=== PATIENT | male | born 1940 | race Caucasian/White ===

== ENCOUNTER 2021-06-29 09:47 | Emergency (ER) | payer MEDICARE, OTHER ==
[~2021-06-29] VITALS: Ht 170.2 cm; Wt 83.9 kg
[~2021-06-29 09:47] MED LIST: AMLODIPINE BESYL5 MG PO; ASPIRIN EC325 MG PO; ATENOLOL50 MG PO; CARBIDOPA-LEVO1 EAC1 PO; FINASTERIDE1 MG PO; FINASTERIDE5 MG PO; GEMFIBROZIL600 MG PO; GLIPIZIDE XL5 MG PO; LIPITOR20 MG PO; LOSARTAN-HCTZ1 EAC1 PO; METFORMIN HCL500 MG PO; OMEPRAZOLE20 MG PO; VITAMIN D31000 UNI1 PO
--- OUTSIDE RECORDS SUMMARY | 2021-06-29 09:50 | XMS ---
PreManage Notification: ELMA CHARLES Security Manager Assurance Events No recent Security Events currently on file CRITERIA MET - [facility] CARE PROVIDERS There are no care providers on record at this time. Helen has no Care Guidelines for this patient. [place] VISIT COUNT (12 MO.) 1 G[facility] [place] TOTAL 1 NOTE: Visits indicate total known visits. ED/C VISIT TRACKING (12 MO.) 06/29/2021 09:49 GIANFRANCO [facility] OR TYPE: Emergency COMPLAINT: - LEFT EYE PAIN, POST EYE SURGERY INPATIENT VISIT TRACKING (12 MO.) No inpatient visits to display in this time frame [email or web address]
[2021-06-29] MEDS ORDERED: KETOROLAC TROMET5 M1 OPTH (10:48)
[2021-06-29] MEDS ORDERED: OFLOXACIN5 M1 OP (10:48)
[2021-06-29] MEDS ORDERED: ALLOPURINOL100 MG PO (10:49)
== END 2021-06-29 11:55 | disposition home or self-care (01) ==
LOC: ED 09:47
DX: H57.12 Ocular pain, left eye (principal); E11.22 Type 2 diabetes mellitus with diabetic chronic kidney disease; N18.4 Chronic kidney disease, stage 4 (severe); G20 Parkinson's disease; I25.10 Atherosclerotic heart disease of native coronary artery without angina pectoris; Z88.8 Allergy status to other drugs, medicaments and biological substances; Z79.899 Other long term (current) drug therapy; Z79.82 Long term (current) use of aspirin; Z79.84 Long term (current) use of oral hypoglycemic drugs
CPT/HCPCS: 99283

== ENCOUNTER 2024-04-14 15:07 | Emergency (ER) | payer MEDICARE, OTHER ==
[~2024-04-14] VITALS: Ht 170.2 cm; Wt 76.0 kg
[~2024-04-14 15:07] MED LIST changes: +ALLOPURINOL100 MG PO; +KETOROLAC TROMET5 M1 OPTH; +OFLOXACIN5 M1 OP
[2024-04-14] MEDS ORDERED: TRIMETHOPRIM/SULFAMETHOXAZOLE 1 EA TAB PO ONE (16:15)
[2024-04-14] MEDS ORDERED: BACTRIM DS TAB1 EACH PO (17:09)
[2024-04-14 17:15] VITALS: BP 162/76
== END 2024-04-14 17:17 | disposition home or self-care (01) ==
LOC: ED 15:07
DX: S92.424A Nondisplaced fracture of distal phalanx of right great toe, initial encounter for closed fracture (principal); E11.9 Type 2 diabetes mellitus without complications; W05.0XXA Fall from non-moving wheelchair, initial encounter; Z79.82 Long term (current) use of aspirin; Z79.84 Long term (current) use of oral hypoglycemic drugs; Z79.899 Other long term (current) drug therapy; Z88.8 Allergy status to other drugs, medicaments and biological substances
CPT/HCPCS: 73630; 99283; A9270

== ENCOUNTER 2024-04-20 08:18 | Inpatient (IN) | payer MEDICARE, OTHER ==
--- NOTE | 2024-04-19 19:30 | NUR ---
REPORT RECEIVED FROM ANA CALHOUN. PT IS RESTING IN BED WITH EYES CLOSED, ON CONT CARDIAC MONITORING,VSS.
[~2024-04-20] VITALS: Ht 170.2 cm; Wt 78.5 kg
[2024-04-20] VITALS (11 sets, daily range): BP systolic 141–178; BP diastolic 61–104
[~2024-04-20 08:18] MED LIST changes: +BACTRIM DS TAB1 EACH PO
[2024-04-20] MEDS ORDERED: DEXTROSE 5% - NACL 0.9% 1,000 ML IV SCH (08:30)
[2024-04-20] MEDS ORDERED: DEXTROSE 50% 50 ML SYR IV ONE ×3 (08:30→10:45)
[2024-04-20] MEDS ORDERED: ondansetron HCL 4 MG/2 ML VIAL IV ONE (08:30)
[2024-04-20 08:52] LABS: BASOPHILS 0.2 % (0-2); HEMATOCRIT 29.6 % (35.0-50.0); HEMOGLOBIN 10.1 g/dL (12.0-18.0); LYMPHOCYTES 1.3 % (24-44); MCH 32.4 (27-36); MCHC 34.1 g/dl (30-36); MONOCYTES 5.8 % (0-12); NEUTROPHILS 92.7 % (39-80); PLATELET COUNT 165 K/uL (140-440); RBC 3.11 M/ul (4.3-5.7); RDW 13.6 (10.5-15.0)
[2024-04-20] MEDS ORDERED: SULFAMETHOXAZO1 EAC1 PO (08:53)
[2024-04-20] MEDS ORDERED: LEVODOPA/CARBIDOPA 25/100 1 EA TAB PO SCH ×2 (09:00→21:00)
[2024-04-20 09:17] LABS: ALBUMIN 3.4 g/dL (3.4-5.0); ALBUMIN/GLOBULIN RATIO 1.17 (1.1-2.4); ANION GAP 15.2 (7-21); BILIRUBIN, TOTAL 0.3 ng/dL (0.2-1.0); BUN/CREATININE RATIO 14.89 (6.0-28.6); CALCIUM 9.2 mg/dL (8.5-10.1); CREATININE, SERUM 4.43 mg/dL (0.70-1.30); POTASSIUM 4.2 mmol/L (3.5-5.1); PROTEIN, TOTAL 6.3 g/dL (6.4-8.2)
[2024-04-20 09:56] LABS: ABO O; ANTIBODY SCREEN NEGATIVE; RH NEGATIVE
[2024-04-20] MEDS ORDERED: LIDOCAINE 2% VISCOUS 6 ML SYR TOP ONE ×2 (10:45→16:15)
[2024-04-20 11:05] LABS: BILIRUBIN, URINE NEGATIVE (negative); BLOOD/HGB, URINE MODERATE (Negative); KETONE, URINE NEGATIVE (Negative); LEUK ESTERASE, URINE NEGATIVE (negative); NITRITE, URINE NEGATIVE (negative); PH, URINE 6.5 (5-7)
[2024-04-20] MEDS ORDERED: DEXTROSE 10% 1,000 ML IV SCH (11:15)
[2024-04-20 11:18] LABS: BACTERIA, URINE NONE SEEN /hpf (negative); CRYSTALS, URINE NONE SEEN (0-1+); EPITHELIAL CELLS, URINE 0 /lpf (0-1+)
[2024-04-20 11:19] LABS: CASTS, URINE NONE SEEN \\lpf; COLLECTION TYPE, URINE CATH; REFLEX CULTURE, URINE No (No)
[2024-04-20] MEDS ORDERED: GLUCAGON,HUMAN RECOMBINANT 1 MG/ML VIAL SUB-Q PRN (13:30)
[2024-04-20] MEDS ORDERED: ondansetron HCL 4 MG/2 ML VIAL IV PRN (13:30)
[2024-04-20] MEDS ORDERED: IBLOOD GLUCOSE TEST STRIP 1 EA TEST XX PRN (13:30)
[2024-04-20] MEDS ORDERED: ACETAMINOPHEN 325 MG TAB PO PRN (13:30)
[2024-04-20] MEDS ORDERED: DEXTROSE 5% 1,000 ML IV PRN (13:30)
[2024-04-20] MEDS ORDERED: DEXTROSE 50% 50 ML SYR IV PRN ×2 (13:30)
[2024-04-20] MEDS ORDERED: INDAPAMIDE1.25 MG PO (14:33)
[2024-04-20] MEDS ORDERED: TAMSULOSIN HCL0.4 MG PO (14:34)
[2024-04-20] MEDS ORDERED: IRBESARTAN150 MG PO (14:34)
[2024-04-20] MEDS ORDERED: METOPROLOL SUC100 MG PO (14:34)
[2024-04-20] MEDS ORDERED: ATORVASTATIN CA20 MG PO (14:35)
--- NOTE | 2024-04-20 15:30 | NUR ---
This RN brings patient to CCU from ER. Patient A+O, accompanied by Viviane. On 3L NC O2 at this time. HRR, no chest pain reported. Lung sounds clear. Bowel tones active. Noted scattered bruising and scratches from recent falls, R great toenail appears injured/bruised from recent fall that brought patient to the ER 6 days ago. Pt reports parkinsonian tremors baseline. Intake forms in process.
--- NOTE | 2024-04-20 15:36 | NUR ---
medications reconciled
[2024-04-20] MEDS ORDERED: LACTATED RINGER'S 1,000 ML IV ONE (16:15)
[2024-04-20] MEDS ORDERED: LACTATED RINGER'S 1,000 ML IV SCH ×3 (16:15→23:45)
[2024-04-20] MEDS ORDERED: OCTREOTIDE ACETATE 100 MCG/ML VIAL IV ONE (16:15)
[2024-04-20] MEDS ORDERED: HEPARIN SOD,PORK IN 0.45% NACL 500 ML IV SCH (16:30)
[2024-04-20 16:33] LABS: PARTIAL THROMBOPLASTIN TIME 26.9 Sec (22.9-41.3)
[2024-04-20 16:34] LABS: INR 1.04 (0.80-1.30); PROTIME 12.9 Sec (11.2-14.2)
[2024-04-20] MEDS ORDERED: INSULIN LISPRO 100 UNIT/ML ML SUB-Q SCH (17:00)
[2024-04-20] MEDS ORDERED: IBLOOD GLUCOSE TEST STRIP 1 EA TEST VI SCH (17:00)
[2024-04-20] MEDS ORDERED: LORazepam 0.5 MG TAB PO ONE (17:30)
[2024-04-20] MEDS ORDERED: DEXTROSE 5% - LACTATED RINGERS 1,000 ML IV SCH (17:30)
[2024-04-20] MEDS ORDERED: NITROGLYCERIN 0.4 MG SUBL SL PRN (18:15)
[2024-04-20] MEDS ORDERED: CYCLOBENZAPRINE HCL 10 MG TAB PO PRN (18:15)
[2024-04-20] MEDS ORDERED: MORPHINE SULFATE 4 MG/ML VIAL IV PRN (18:15)
--- NOTE | 2024-04-20 18:42 | NUR ---
Block charting for hours 7148-1025 as follows: Patient requires multiple dosages of D50% for low blood sugars, checked hourly and treated per orders. Fluid order changes including LR bolus, D10% and D5LR%, see EMAR. IV octreotide administered per order. Patient tolerating PO, takes orange juice and ensure as tolerated. Patient becoming increasingly anxious. Attempted frequent repositioning, Q5-10 minutes. Over this time period, PO tylenol, PO ativan, flexeril, morphine administered, see EMAR. SL nitroglycerin administered after patient complains of worsening chest tightness. Patient receiving heparin gtt. Terrazas catheter draining clear yellow urine. Patient family at bedside and attentive to patient, engaged in care. Dr Russell at bedside to assess patient. Repeat EKG complete by RT, no acute chagnes noted.
[2024-04-20] MEDS ORDERED: MAGNESIUM CHLORIDE 64 MG TABCR PO ONE (19:00)
[2024-04-20] MEDS ORDERED: Calcium Gluconate in NS 1,000 MG/50 ML BAG IV ONE (19:00)
--- NOTE | 2024-04-20 19:30 | NUR ---
REPORT RECEIVED FROM ALFIE CALHOUN. PT RESTING IN BED WITH EYES CLOSED.
[2024-04-20 20:08] LABS: HEMOGLOBIN 9.1 g/dL (12.0-18.0); PLATELET COUNT 147 K/uL (140-440)
[2024-04-20 20:12] LABS: BASOPHILS 0.4 % (0-2); EOSINOPHILS 0.3 % (0-6); HEMATOCRIT 26.3 % (35.0-50.0); LYMPHOCYTES 3.9 % (24-44); MCH 32.7 (27-36); MCHC 34.8 g/dl (30-36); MCV 94.1 fl (81-99); MONOCYTES 10.7 % (0-12); NEUTROPHILS 84.7 % (39-80); RBC 2.79 M/ul (4.3-5.7); RDW 13.5 (10.5-15.0)
[2024-04-20] MEDS ORDERED: METOPROLOL SUCCINATE 50 MG TABCR PO SCH (21:00)
--- NOTE | 2024-04-20 21:45 | NUR ---
SPENT 30 MINUTES TRYING TO REPOSITION PT FOR COMFORT, PT CONT TO C/O HIP PAIN AND CRAMPING. 2 MG IV MORPHINE GIVEN FOR PAIN.
--- NOTE | 2024-04-20 22:45 | EKG ---
[facility] [address] [place] [address] Signed Poor data quality, interpretation may be adversely affected Atrial fibrillation with premature ventricular or aberrantly conducted complexes ST \T\ T wave abnormality, consider inferior ischemia Abnormal ECG No previous ECGs available Confirmed by Cuco Delgado MD () on 04/20/2024 10:45:37 PM Electronically Signed By: CUCO DELGADO MD 04/20/24 2245 PATIENT NAME: ELMA CHARLES Electrocardiogram DATE OF : 42 PHYSICIAN: CUCO DELGADO MD REPORT #: [id number] REPORT IS CONFIDENTIAL AND NOT TO BE RELEASED WITHOUT AUTHORIZATION
--- NOTE | 2024-04-20 22:47 | EKG ---
[facility] [address] [place] [address] Signed Accelerated Junctional rhythm Minimal voltage criteria for LVH, may be normal variant ( R in aVL ) Abnormal ECG When compared with ECG of 20-APR-2024 09:36, No significant change was found Confirmed by Cuco Delgado MD () on 04/20/2024 10:46:53 PM Electronically Signed By: CUCO DELGADO MD 04/20/24 2247 PATIENT NAME: ELMA CHARLES Electrocardiogram DATE OF : 42 PHYSICIAN: CUCO DELGADO MD REPORT #: [id number] REPORT IS CONFIDENTIAL AND NOT TO BE RELEASED WITHOUT AUTHORIZATION
--- NOTE | 2024-04-20 22:54 | EKG ---
[facility] [address] [facility] [place] [address] Signed Normal sinus rhythm with 1st degree AV block Nonspecific ST abnormality Abnormal ECG When compared with ECG of 20-APR-2024 09:37, No significant change was found Confirmed by Cuco Delgado MD () on 04/20/2024 10:54:12 PM Electronically Signed By: CUCO DELGADO MD 04/20/24 225 PATIENT NAME: ELMA CHARLES KAREN Electrocardiogram DATE OF : 42 PHYSICIAN: CUCO DELGADO MD REPORT #: [id number] REPORT IS CONFIDENTIAL AND NOT TO BE RELEASED WITHOUT AUTHORIZATION
--- NOTE | 2024-04-20 23:00 | EKG ---
[facility] [address] [facility] [place] [address] Signed Sinus rhythm with 1st degree AV block Left ventricular hypertrophy with repolarization abnormality Abnormal ECG When compared with ECG of 20-APR-2024 11:13, No significant change was found Confirmed by Cuco Delgado MD () on 04/20/2024 11:00:24 PM Electronically Signed By: CUCO DELGADO MD 04/20/242299 PATIENT NAME: ELMA CHARLES KAREN Electrocardiogram DATE OF : 42 PHYSICIAN: CUCO DELGADO MD REPORT #: [id number] REPORT IS CONFIDENTIAL AND NOT TO BE RELEASED WITHOUT AUTHORIZATION
--- NOTE | 2024-04-20 23:19 | NUR ---
PT HAS BEEN RESTFUL, LYING WITH EYES CLOSED, RESP EVEN AND UNLABORED, VSS SINCE MORPHINE WAS GIVEN.
--- NOTE | 2024-04-20 23:45 | NUR ---
CRITICAL LAB VALUE TROPONIN RECEIVED, CONVEYED TO DR DELGADO. ALSO NEW CK RESULT DISCUSSED, NEW ORDERS FOR 2L LR BOLUS GIVEN. BOLUS STARTED. PT REMAINS RESTFUL IN BED, DOES WAKE WITH CARE ACTIVITIES BUT GOES BACK TO SLEEP AFTERWARDS.
[2024-04-21] VITALS (17 sets, daily range): BP systolic 130–184; BP diastolic 52–86
--- NOTE | 2024-04-21 03:45 | NUR ---
PT CALLING OUT FOR NURSE, NEEDS TISSUE TO SPIT SPUTUM INTO. STATES HE HAS BEEN MORE COMFORTABLE AND HAS BEEN ABLE TO SLEEP OFF AND ON. DOES C/O NOT BEING ABLE TO DO A STRONG COUGH AND UNABLE TO COUGH UP MUCOUS. PT GIVEN CORONET. ASSESSMENT DONE, UNCHANGED FROM PREVIOUS. DENIES ANY CHEST TIGHTNESS OR PAIN AT THIS TIME. PT REMAINS ON 2L/O2 WITH SPO2 93%.
[2024-04-21 05:44] LABS: BASOPHILS 0.8 % (0-2); EOSINOPHILS 2.6 % (0-6); HEMATOCRIT 27.9 % (35.0-50.0); HEMOGLOBIN 9.6 g/dL (12.0-18.0); LYMPHOCYTES 6.9 % (24-44); MCH 32.5 (27-36); MCHC 34.5 g/dl (30-36); MCV 94.2 fl (81-99); MONOCYTES 13.1 % (0-12); NEUTROPHILS 76.6 % (39-80); PLATELET COUNT 147 K/uL (140-440); RBC 2.96 M/ul (4.3-5.7); RDW 13.2 (10.5-15.0)
--- NOTE | 2024-04-21 06:00 | NUR ---
IN FOR IV PUMP, PT REPOSITIONED FOR COMFORT.
[2024-04-21 06:09] LABS: ALBUMIN 2.6 g/dL (3.4-5.0); ALBUMIN/GLOBULIN RATIO 0.96 (1.1-2.4); ANION GAP 12.6 (7-21); BILIRUBIN, TOTAL 0.3 ng/dL (0.2-1.0); BUN/CREATININE RATIO 13.23 (6.0-28.6); CALCIUM 8.8 mg/dL (8.5-10.1); CREATININE, SERUM 3.55 mg/dL (0.70-1.30); MAGNESIUM 1.5 mg/dL (1.8-2.4); PHOSPHORUS, INORGANIC 2.7 mg/dL (2.5-4.9); POTASSIUM 4.6 mmol/L (3.5-5.1); PROTEIN, TOTAL 5.3 g/dL (6.4-8.2)
--- NOTE | 2024-04-21 07:21 | NUR ---
UR CLINICAL REVIEW: 2 MN SUZIE, MEETS INPT FOR HYPOGLYCEMIA, NSTEMI MEDICARE INPT 04/20/2024 @ 1326 ORDER MATCHES REG NO AUTH REQUIRED PER MEDICARE RULES. DC PLAN PENDING FURTHER ASSESSMENT.
--- NOTE | 2024-04-21 07:30 | NUR ---
REPORT RECIEVED FROM INSURANCE ATTORNEY RN. PATIENT RESTING IN BED ON HEPARIN GTT AT THIS TIME. PATIENT RECIEVING D10 AT 100MLS/HR AND LR AT 200MLS/HR. PATIENT ON 2L NC AND IS NOT USUALLY ON OXYGEN.
[2024-04-21] MEDS ORDERED: MAGNESIUM SULFATE 2 GM/50 ML BAG IV SCH (08:15)
[2024-04-21] MEDS ORDERED: LACTATED RINGER'S 1,000 ML IV ONE ×3 (08:15→20:00)
[2024-04-21] MEDS ORDERED: METOPROLOL SUCCINATE 100 MG TABCR PO SCH (09:00)
--- NOTE | 2024-04-21 09:17 | NUR ---
PATIENT IN BED AT THIS TIME. MEDICAL TECHNICIAN ASSISTED IN FEEDINGS PATIENT. CALL LIGHT WITHIN REACH, NO FURTHER NEEDS AT THIS TIME.
--- NOTE | 2024-04-21 09:30 | NUR ---
IN TO SEE PATIENT AND REVIEW PLAN OF CARE. REPEAT LABS AT 1230. PATIENT IS VERY SOFT SPOKEN AND DIFFICULT TO UNDERSTAND AT TIMES. PATIENT REPORTS CHRONIC PAIN. PATIENT DENIES CHEST PAIN AND SOB. PATIENT ON 2L NC. PATIENTS HAS NOT BEEN IN YET AT THIS TIME. PATIENT ATE BREAKFAST AND TOLERATED WELL. PATIENT NEEDED TO BE FED HIS FOOD WITH ASSISTANCE FROM STAFF. PATIENT TOOK HIS MEDICATIOSN ONE AT A TIME WITH JUICE. CALL LIGHT IN REACH.
--- NOTE | 2024-04-21 10:30 | NUR ---
Spoke with Adilson. He is resting in bed and states he is very tired. He lives at home with his and house as 2 steps. He denies issues getting in or out. He has Parkinsons and goes to OP therapy for 3 years. He denies wanting to transfer out for further care. He does not want CPR or a ventalator. He would like to complete a POLST. arrives at this time. She had difficulty walking from the front of the hosital to CCU. She is not steady on her feet and holds onto the wall. I let her know in future she can notify the front of house manager or CCU and someone will give her a wc ride. is in agreement with pt for DNI/DNR. POLST completed with pt and Dr. Russell notified so he can speak with pt and sign. we had a lengthy discussion about a plan for when the pt can leave the hospital. We discussed placement to an STORM, SNF, and comfort care. Per the she is not able to care for Adilson at home. He is now a 2 person assist and it has become more and more difficult for her to care for him. She denies having the funds for placement to ASSISTED, they do not want Comfort Care, he is not excited for a SNF but would agree for rehab. would like pt to go to [facility] in [facility], pt is refusing. I gave them a list of places. He would like to go to [facility]. I will [facility] the chart to [facility], [facility], and [facility] in [place], [facility] at the [facility] in [place].
--- NOTE | 2024-04-21 10:43 | NUR ---
CAN DRYER IN AT THE BEDSIDE TO PREFORM IMAGING. PATIENTS IN ROOM AND CASE MANAGENER IN DISCUSSING PLAN OF CARE.
--- NOTE | 2024-04-21 11:02 | NUR ---
PT NOT AVAIALBLE FOR VISIT. PROVIDED PRAYER.
[2024-04-21] MEDS ORDERED: PHARMACY RENAL DOSE ADJUSTMENT 1 DOSE MISC PO SCH (12:00)
--- NOTE | 2024-04-21 12:30 | NUR ---
THIS RN AT THE BEDSIDE TO ASSIT PATIENT WITH LUNCH. PATIENT IS NOT ABLE TO FEED HIMSELF. PER PATIENTS HE DOES NOT FEED HIMSELF AT HOME EITHER. PATIENT TOELRATED WELL. PATIENT AND UPDATED ON PLAN OF CARE. LABS DONE AND AWAITING RESULTS.
--- NOTE | 2024-04-21 14:00 | NUR ---
PATIENT HEPARIN GTT CHANGED PER ORDERS. PATIENTS DAUGHTER AND AT THE BEDSIDE. PATIENTS DAUGHTER UPDATED ON PLAN OF CARE. PER PATIENTS DAUGHTER THE PATIENT SAW MD HAYES LAST WEEK AND HIS GFR AT THAT TIME WAS 20 AND PER MOHANIIFTIKHAR HE WAS NOTED TO BE IN CKD STAGE 4.
--- NOTE | 2024-04-21 14:00 | NUR ---
Spoke with pts and daughter. Discussed I called [facility] and they state they have a PT Aid on staff daily during the week. He does not have backup so if he is gone, they do not have therapy that day. I also asked if pt would be able to have a private room. Fiorella stated, "this is not likely".
--- NOTE | 2024-04-21 16:33 | NUR ---
PATIENT RESITNGI N BED AT THIS TIME. PATIENT ON HEART MONITOR AND HR 50'S AT REST. PATIENT SPO2 96%. PATIENT URINE IS CLEAR YELLOW AT THIS TIME. PATIENTS DAUGHTER LEFT FOR THE NIGHT. PATIENT DENIES PAIN.
--- NOTE | 2024-04-21 18:00 | NUR ---
SINDHU SEVERINO IN TO ASSIST PATIENT WITH DINNER. PATIENT ONLY WANTED A FEW BITES. PATIENT REFUSED ENSURE AT THIS TIME. PATIENT WATCHING TV AND PROVIDED WITH APPLE JUICE. PATIENT REPORTS NO PAIN AT THIS TIME. CALL LIGHT IN REACH. PATIENT REPORTS HIS HANDS AND EYELIDS FEELING PUFFY. MD IS AWARE THAT PATIENT HAS HAD INCREASED SWELLING WITH IV FLUIDS TODAY. PATIENTS MAINTAINING SPO2 OIN 2L. PATIENTS BREATH SOUNDS REMAIN UNCHANGED. PATIENT IS ALERT AND ORIENTED.
--- NOTE | 2024-04-21 19:40 | NUR ---
Handoff report received from UNIQUE Alegre. patient laying awake in bed watching TV. no needs at this time. call light within reach.
[2024-04-21] MEDS ORDERED: SENNOSIDES/DOCUSATE 1 EA TAB PO SCH (21:00)
--- NOTE | 2024-04-21 22:20 | NUR ---
SCHEDULED MEDS PROVIDED. PT REPOSITIONED. PT STATES NO OTHER NEEDS AT THIS TIME. CALL LIGHT IN REACH.
--- NOTE | 2024-04-21 23:26 | NUR ---
PATIENT LAYING AWAKE IN BED, PROVIDED WITH BLANKET. NO FURTHER NEEDS AT THIS TIME. CALL LIGHT WITHIN REACH.
[2024-04-22] VITALS (24 sets, daily range): BP systolic 141–179; BP diastolic 38–137
--- NOTE | 2024-04-22 02:00 | NUR ---
PATIENT AWAKE IN BED, REQUEST TO TURN OFF TV. PATIENT STATES NO FURTHER NEEDS AT THIS TIME. VITAL SIGNS STABLE. CALL LIGHT WITHIN REACH.
--- NOTE | 2024-04-22 03:50 | NUR ---
patient assisted with bed miller, unable to have a BM. patient linen changed and repositioned in bed. patient TV turned on per request. call light in hand. arms elevated with pillow. patient foreskin noted to be swollen and retracted distal from glans. elevated with wash cloth. latif care provided. no further needs at this time.
--- NOTE | 2024-04-22 04:50 | NUR ---
PATIENT STATES HIS LEGS ARE CRAMPING. PATIENT REPOSITIONED BUT STATES IT DID NOT HELP. PRN FLEXERIL GIVEN PER EMAR. CALL LIGHT IN HAND. VITAL SIGNS STABLE.
[2024-04-22] MEDS ORDERED: BUDESONIDE 0.5 MG/2 ML VIAL ONE (05:00)
--- NOTE | 2024-04-22 05:05 | NUR ---
PATIENT LAYING AWAKE IN BED WATCHING TV. PATIENT REMAINS ON HEPARIN DRIP AT 10 UNITS/KG/HR. PATIENT IV SITES WNL. PATIENT NOTED TO HAVE UPPER AIRWAY WHEEZES, LUNG SOUNDS ARE CLEAR. PATIENT PROVIDED WITH WARM BLANKET. PATIENT VITAL SIGNS STABLE. CALL LIGHT IN HAND.
--- NOTE | 2024-04-22 05:09 | NUR ---
MARISELA HAS UPPER AIRWAY WHEEZING FROM SECRETIONS. HIS LUNGS SOUND CLEAR. A PULMICORT NEB WAS PROVIDED IN THE HOPES TO STREGHTEN HIS UPPER AIR MUSCLES ENOUGH TO BE ABLE COUGH UP SECRETIONS WITH AND W/O THE USE OF PULMICORT. RT OFFERRED NASO TRACHEAL SUCTION AND MARISELA REFUSED. MARISELA FELT LIKE THE PULMICORT TREATMENT DID HELP HIM
[2024-04-22] MEDS ORDERED: BUDESONIDE 0.5 MG/2 ML VIAL INH ONE (05:15)
[2024-04-22 05:39] LABS: BASOPHILS 0.7 % (0-2); EOSINOPHILS 2.6 % (0-6); HEMOGLOBIN 10.1 g/dL (12.0-18.0); LYMPHOCYTES 4.2 % (24-44); MCH 32.2 (27-36); MCHC 34.7 g/dl (30-36); MCV 92.6 fl (81-99); MONOCYTES 11.4 % (0-12); NEUTROPHILS 81.1 % (39-80); PLATELET COUNT 152 K/uL (140-440); RBC 3.13 M/ul (4.3-5.7); RDW 13.4 (10.5-15.0)
[2024-04-22 05:58] LABS: ALBUMIN 2.6 g/dL (3.4-5.0); ALBUMIN/GLOBULIN RATIO 0.93 (1.1-2.4); ANION GAP 11.4 (7-21); BILIRUBIN, TOTAL 0.3 ng/dL (0.2-1.0); BUN/CREATININE RATIO 12.58 (6.0-28.6); CALCIUM 8.9 mg/dL (8.5-10.1); CREATININE, SERUM 3.02 mg/dL (0.70-1.30); POTASSIUM 4.4 mmol/L (3.5-5.1); PROTEIN, TOTAL 5.4 g/dL (6.4-8.2)
--- NOTE | 2024-04-22 06:30 | NUR ---
DR DELGADO IN ROOM TO SEE PATIENT AND DISCUSS PLAN OF CARE
--- NOTE | 2024-04-22 07:55 | NUR ---
UPDATED PT/OT EVOLIVIA SENT TO [facility], [facility]
--- NOTE | 2024-04-22 08:43 | NUR ---
IN TO DO BLOOD SUGAR, BREAKFAST SERVED TO PT, PT SAT UP IN BED.
[2024-04-22] MEDS ORDERED: METOPROLOL SUCCINATE 100 MG TABCR PO SCH (09:00)
--- NOTE | 2024-04-22 10:46 | NUR ---
HUY FROM [facility] STATES THEY CAN ACCEPT PATIENT, BUT NOT UNTIL AT LEAST THURSDAY NEXT WEEK DUE TO BED AVAILABILITY. WILL NOTIFY PATIENT, SPOUSE, PHYSICIAN AND NURSES.
--- NOTE | 2024-04-22 11:25 | NUR ---
PT NOT AVAILABLE FOR VISIT. PROVIDED PRAYER.
--- NOTE | 2024-04-22 12:13 | NUR ---
REPORT RECEIVED FROM PHYSICAL THERAPY. PT WAS ABLE TO GET UP TO BEDSIDE AND THEN USE WALKER TO SIT ON BSC, WAS NOT ABLE TO HAVE BOWEL MOVMENT. PT THEN TO CHAIR, SITTING UP IN CHAIR WITH BED ALARM ON.
--- NOTE | 2024-04-22 13:01 | NUR ---
CALLED AND LEFT MESSAGE FOR KONRAD, , REGARDING ACCEPTANCE TO [facility] WITH PLANNED ADMISSION FOR THURSDAY NEXT WEEK AT 1PM AND PATIENT WILL NEED CLOTHING, SHOES, ETC. WHEN HE GOES. REQUEST TO DISCUSS WITH STAFF IF SHE WILL TAKE HIM OR IF A RIDE NEEDS TO BE PROVIDED.
--- NOTE | 2024-04-22 13:11 | NUR ---
IN TO VISIT, MANAGER CHEMISTRY TO COME AND TALK WITH HER ANDPT REGARDING DISCHARGE PLAN. PT REMAINS UP IN CHAIR.
--- NOTE | 2024-04-22 14:00 | NUR ---
, KONRAD, NOTIFIED OF PATIENT ACCEPTANCE TO [facility] IN [place]. STATES SHE REALLY DOES NOT WANT HIM TO GO OUT OF TOWN DUE TO WEATHER AND DISTANCE AND IS REQUESTING FOLLOW-UP WITH [facility]. CALLED AND SPOKE WITH CAMPOS AT [facility]. THEY ARE UNABLE TO ACCEPT PATIENT DUE TO LACK OF THERAPIST AT THIS TIME.
--- NOTE | 2024-04-22 15:35 | NUR ---
LION FROM [facility] IS ABLE TO ACCEPT PATIENT. DISCUSSED WITH KONRAD, SPOUSE. SHE PREFERS [facility]. SHE STATES SHE PREFERS PATIENT GO BY [facility]. WILL SET THAT UP ON THURSDAY.
--- NOTE | 2024-04-22 15:37 | NUR ---
patient back to bed w/ 1pa fww. latif drained and documented. bed alarm on. call light within reach.
--- NOTE | 2024-04-22 19:45 | NUR ---
handoff report received from UNIQUE Russo. Patient is resting awake in bed watching tv. no needs at this time. call light within reach.
[2024-04-22] MEDS ORDERED: QUETIAPINE FUMARATE 25 MG TAB PO PRN (21:00)
--- NOTE | 2024-04-22 21:40 | NUR ---
patient noted to have increased confusion and agitation. patient pulling off gown and pulling at lines. patient reoriented. new gown placed. patient bed alarm on, bed in low and locked position with door and curtain open.
--- NOTE | 2024-04-22 23:15 | NUR ---
patient right IV site noted to be leaking. IV taken out, tip intact. site covered with guaze and coband.
[2024-04-22] MEDS ORDERED: OLANZapine 10 MG VIAL IM PRN (23:45)
[2024-04-23] VITALS (14 sets, daily range): BP systolic 87–179; BP diastolic 58–99
--- NOTE | 2024-04-23 00:12 | NUR ---
PATIENT PULLS OUT IV SITE. PATIENT AGITATED AND AGRESSIVE WITH STAFF. ATTEMPTED TO CALM PATIENT. PATIENT CONTINUES TO BE AGITATED, ATTEMPTS TO HIT AND KICK AT STAFF. PRN ZYPREXA ADMINISTERED PER EMAR. NEW IV STARTED BY PAINTER DECORATOR.
--- NOTE | 2024-04-23 00:50 | NUR ---
PATIENT CONTINUES TO HAVE INCREASED AGITATION AND CONFUSION WITH INCREASED O2 DEMANDS, NOW ON 4L NC WITH SATURATIONS IN THE LOW 90'S. PATIENT CONTINUES TO HAVE UPPER AIRWAY WHEEZING, AND UNABLE TO CLEAR SECRETIONS. PATIENT CONTINUES TO BE SWOLLEN IN THE UPPER AND LOWER EXTREMITIES. DOCTOR CALLED AND UPDATED.
[2024-04-23] MEDS ORDERED: LORazepam 2 MG/ML VIAL IV PRN (01:30)
--- NOTE | 2024-04-23 02:15 | NUR ---
patient desats to 86% on 3L NC. patient titrated up to 5L NC, O2 saturation up to 95%.
--- NOTE | 2024-04-23 02:45 | NUR ---
in patient room to adjust blood pressure cuff. patient agressive toward staff, attempts to hit and spit toward staff. attempted to calm patient. patient continues to be agitated and does not follow commands. this RN left room in attempt de-escalate situation. patient continues to yell and pull at lines. PRN Ativan given per EMAR for agitation.
--- NOTE | 2024-04-23 05:05 | NUR ---
LAB IN ROOM FOR BLOOD DRAW. PATIENT TITRATED DOWN TO 3L NC, O2 SATURATION AT 97%. NO NEEDS AT THIS TIME. BED IN LOW AND LOCKED POSITION WITH BED ALARM ON, CURTAIN AND DOOR REMAIN OPEN.
[2024-04-23 05:27] LABS: BASOPHILS 0.5 % (0-2); EOSINOPHILS 1.2 % (0-6); HEMATOCRIT 29.3 % (35.0-50.0); HEMOGLOBIN 10.2 g/dL (12.0-18.0); LYMPHOCYTES 4.1 % (24-44); MCH 32.6 (27-36); MCV 93.2 fl (81-99); MONOCYTES 9.3 % (0-12); NEUTROPHILS 84.9 % (39-80); PLATELET COUNT 163 K/uL (140-440); RBC 3.14 M/ul (4.3-5.7); RDW 13.6 (10.5-15.0)
[2024-04-23 05:56] LABS: ALBUMIN 2.5 g/dL (3.4-5.0); ALBUMIN/GLOBULIN RATIO 0.83 (1.1-2.4); BILIRUBIN, TOTAL 0.5 ng/dL (0.2-1.0); BUN/CREATININE RATIO 12.01 (6.0-28.6); CREATININE, SERUM 3.08 mg/dL (0.70-1.30); POTASSIUM 4.4 mmol/L (3.5-5.1); PROTEIN, TOTAL 5.5 g/dL (6.4-8.2)
[2024-04-23 05:57] LABS: MAGNESIUM 1.9 mg/dL (1.8-2.4); TSH, 3RD GENERATION 1.634 uIU/mL (0.358-3.740)
[2024-04-23 06:01] LABS: ANION GAP 13.4 (7-21)
[2024-04-23] MEDS ORDERED: ASPIRIN 81 MG CHEW PO SCH (08:00)
--- NOTE | 2024-04-23 08:04 | NUR ---
ON RA PATIENT SLEEPING 94%.
--- NOTE | 2024-04-23 08:16 | NUR ---
IN PATIENT'S ROOM THIS AM FOR ASSESSMENT, VITALS, AND BELL RINGER. PT'S BLOOD SUGAR 67 AND 1/2 AMP D50 GIVEN PER EMAR. REPOSITIONED PATIENT IN BED TO TRY AND STRAIGHTEN HIM OUT. PT IS HARD TO UNDERSTAND, BUT DID FOLLOW COMMANDS OF OPENING EYES BRIEFLY. PT HAS BEEN CONFUSED THROUGH THE NIGHT AND DID REQUIRE BOTH ATIVAN AND ZYPREXA. 2ND IV SITE BEING SOUGHT AFTER NOW. HEPARIN INFUSION INFUSING AT 13 UNITS/KG/HR, AND LR INFUSING AT 100 ML/HR. WILL CONTINUE TO MONITOR CLOSELY.
[2024-04-23] MEDS ORDERED: TICAGRELOR 90 MG TAB PO SCH (09:00)
[2024-04-23] MEDS ORDERED: ALBUTEROL SULFATE 0.083% 3 ML VIAL INH PRN (11:00)
--- NOTE | 2024-04-23 11:21 | NUR ---
DR. CHISHOLM IN ROOM TO SEE PATIENT. UPDATED ON FEVER, INCREASED SOMNOLENCE AND CONFUSION AND INABILITY TO GIVE PO MEDS, WELL HYPOGLYCEMIA THIS AM. ORDERS REC'D FOR A UA, CXR, BLOOD CULTURES X2 AND CHANGE IVF TO D5 LR FROM LR. PT TO BE STARTED ON ANTIBIOTICS WELL. PT HAS BEEN UNABLE TO TAKE ANY MEDS ORALLY. HEPARIN GTT REMAINS ON AT 13 UNITS/KG/HR AT THIS TIMEAND NEXT APTT IS AT 1330.
[2024-04-23] MEDS ORDERED: FUROSEMIDE 20 MG/2 ML VIAL IV ONE (11:30)
[2024-04-23] MEDS ORDERED: DEXTROSE 5% - LACTATED RINGERS 1,000 ML IV SCH (11:30)
[2024-04-23] MEDS ORDERED: CEFTRIAXONE/SODIUM CHLORIDE 1 GM/100 ML PIGGYBACK IV SCH (11:46)
--- NOTE | 2024-04-23 11:47 | NUR ---
PATIENT CONTINUES TO BE CONFUSED AND COMBATIVE, PUNCHING IN THE AIR TOWARDS STAFF MEMBERS. PT NOT ORIENTED TO ANYTHING AT THIS TIME AND WILL NOT FOLLOW COMMANDS BUT BECOMES IMMEDIATELY AGITATED WITH ANY ACTIVITY. PT DOES SETTLE DOWN AFTER BEING LEFT ALONE FOR A FEW MOMENTS. CXR DONE AND BLOOD CULTURES SENT. IV ABX TO BE STARTED. IV SITE WRAPPED FOR PROTECTION. BED ALARM FOR SAFETY AND BED IN LOW POSITION.
[2024-04-23 11:48] LABS: BILIRUBIN, URINE NEGATIVE (negative); BLOOD/HGB, URINE MODERATE (Negative); KETONE, URINE NEGATIVE (Negative); LEUK ESTERASE, URINE NEGATIVE (negative); NITRITE, URINE NEGATIVE (negative); PH, URINE 5.5 (5-7)
[2024-04-23 11:54] LABS: EPITHELIAL CELLS, URINE 0 /lpf (0-1+)
[2024-04-23 11:55] LABS: BACTERIA, URINE NONE SEEN /hpf (negative); CASTS, URINE NONE SEEN \\lpf; COLLECTION TYPE, URINE CATH; CRYSTALS, URINE NONE SEEN (0-1+); REFLEX CULTURE, URINE No (No)
[2024-04-23] MEDS ORDERED: DAPTOmycin 500 MG/10 ML VIAL IV SCH (12:00)
--- NOTE | 2024-04-23 13:29 | NUR ---
PT AWAKE AND TALKING WITH STAFF, WAS ABLE TO GET TOOTIE MED DOWN AT 13:00. PT SON-IN-LAW INTO VISIT AT THIS TIME, WAS ABLE TO OBTAIN LAB SAMPLE.
[2024-04-23] MEDS ORDERED: metroNIDAZOLE/SODIUM CHLORIDE 500 MG/100 ML PIGGYBACK IV SCH (14:00)
--- NOTE | 2024-04-23 14:18 | NUR ---
PT SON IN-LAW PRESENT, ASKING QUESTION ABOUT PLACEMENT AND DIFFERENT ORDERS TO STOP TREATMENT. PROVIDIE INFORMATION ABOUT COMFORT CARE AND WHAT PT POLST FORM STATES AND HOW IT WOULD NEED CHANGED. HE IS ASKING QUESTION FOR THE FAMILY THAT REMAIN AT HOME DUE TO IT IS TOO HARD FOR THE TO SEE HER THIS WAY. PT APPEARS TO BE RESTING COMFORTABLE AT THIS TIME.
[2024-04-23] MEDS ORDERED: LACTULOSE 10 GM/15 ML ML PR SCH (15:00)
--- NOTE | 2024-04-23 16:45 | NUR ---
PT REPOSITIONED AT THIS TIME, COOPERATIVE AND TRYING TO TALK WITH STAFF IN THE ROOM. MOVED UP IN BED AND REMAINS ON ROOM AIR AT THIS TIME WITH A SPO2 93%. FAMILY LEFT AT THIS TIME.
[2024-04-23] MEDS ORDERED: IBUPROFEN 400 MG TAB PO PRN (17:30)
[2024-04-23] MEDS ORDERED: ATROPINE SULFATE 1% OPTH DROPS SL PRN (17:30)
[2024-04-23] MEDS ORDERED: ARTIFICIAL TEARS 15 ML BTL OU PRN (17:30)
[2024-04-23] MEDS ORDERED: KETOROLAC TROMETHAMINE 15 MG/ML VIAL IV PRN (17:30)
--- NOTE | 2024-04-23 17:30 | NUR ---
PT TRANSDITIONED TO COMFORT CARE AT THIS TIME. IV FLUIDS AND HEPRINE DRIPED STOPED. DAUGHTER IN ROOM AND PT SHAVED, ATE SOME DINNER WELL, TALKING WITH DAUGHTER AND STAFF. DAUGHTER STATES "THIS CONFUSION WE ARE SEEING NOW IS NORMAL FOR HIM" PT TALKING ABOUT FISHING AND WANTING TO GO HOME, THEN TALKS ABOUT FOOTBALL AND WHO IS GOING TO THE PLAY[employer]S YOU KNOW "[employer]" PARTS CATALOGUER SHAVED PT AT THIS TIME AND HE STATES "THANK YOU"
--- NOTE | 2024-04-23 18:23 | NUR ---
PT REPOSOTIONED AT THIS TIME, CHANGE TV TO BASKETBALL PER HIS REQUEST. CALL LIGHT WITHIN REACH, BED ALARM ON AT THIS TIME.
--- NOTE | 2024-04-23 19:25 | NUR ---
RECIEVED REPORT FROM CCU NURSE. PATIENT IN ROOM RESTING ON BACK IN BED WITH EYES CLOSED. RESPIRATIONS EVEN AND UNLABORED, RR 16. AWAKENS EASILY TO VOICE. PATIENT OPENS EYES AND RESPONDS TO QUESTIONS, RESPONSES OCCASIONALLY TANGENTIAL. RAMIRES IN PLACE, CLEAR YELLOW URINE DRAINING. NO NEEDS IDENTIFIED AT THIS TIME. CALL LIGHT IN REACH. BED ALARM ACTIVE.
--- NOTE | 2024-04-23 19:30 | NUR ---
PT TRANSFERED TO M/S AT 19:00. REPORT GIVEN TO M/S STAFF. ALL PERSONAL BELONGINGS SENT TO ROOM 110 WITH PT. ALL QUESTIONS ANSWERED.
[2024-04-23] MEDS ORDERED: bisacodyL 10 MG SUPP PR SCH (21:00)
--- NOTE | 2024-04-23 22:31 | NUR ---
Patient agitated with staff. Admin ativan 2mg iv at this time. Patient close to nurses station. Patient denies pain. Bed alarm intact.
--- NOTE | 2024-04-24 00:37 | NUR ---
Patient resting in bed, eyes closed, respirations even and non labored. No notable distress. Bed alarm intact, close to rn station.
--- NOTE | 2024-04-24 01:11 | NUR ---
IN ROOM TO ROUND ON PATIENT. PATIENT DEMONSTRATING AIR HUNGER, PRN MORPHINE ADMINISTERED, SEE E-MAR. PATIENT SLIGHTLY RESTLESS IN BED. PATIENT REMOVED CLOTHING. AGITATED, INTERMITTENTLY YELLING OUT. CONFUSED. PATIENT UNABLE TO REORIENT. RAMIRES REMAINS INTACT. IV INTACT. NO OTHER NEEDS IDENTIFIED AT THIS TIME. CALL LIGHT IN REACH. BED ALARM ACTIVE.
[2024-04-24] MEDS ORDERED: SCOPOLAMINE 1 MG/3 DAYS PATCH 1 EACH TDSY TD SCH (03:00)
--- NOTE | 2024-04-24 03:08 | NUR ---
IN ROOM TO ROUND ON PATIENT. PATIENT DEMONSTRATING AIR HUNGER AND EXCESS SECRETIONS. PRN MORPHINE ADMINSTERED AND SCOPLAMINE PATCH APPLIED, SEE E-MAR. PATIENT AGITATED AND COMBATIVE WHEN ATTEMPTING TO ADMINISTER MEDICATIONS AND PERFORM RAMIRES CARE. RAMIRES CARE COMPLETED. PATIENT DENIES ADDITIONAL NEEDS AT THIS TIME. CALL LIGHT IN REACH. BED ALARM ACTIVE. FALL MATS IN PLACE.
--- NOTE | 2024-04-24 06:33 | NUR ---
IN ROOM TO ROUND ON PATIENT. PRN ATIVAN ADMINISTERED TO DECREASE AGITATION, SEE E-MAR. PATIENT LINENS AND GOWNS CHANGED, PATIENT BRIEF CHANGED. PATIENT RESTING IN BED ON BACK WITH EYES CLOSED. RESPIRATIONS 16, EVEN AND UNLABORED. NO ADDITIONAL NEEDS IDENTIFIED AT THIS TIME. CALL LIGHT IN REACH. BED ALARM ACTIVE. FALL MATS IN PLACE.
--- NOTE | 2024-04-24 07:30 | NUR ---
REPORT RECEIVED FROM NIGHT RN - PT RESTING IN BED ON BACK BED WITH HOB ELEVATED. RR EVEN AND UNLABORED. DOOR OPEN TO RN STATION.
--- NOTE | 2024-04-24 07:40 | NUR ---
PATIENT IS ON COMFORT CARE, BOARD HAS BEEN UPDATED NO REQUEST AT THIS TIME
--- NOTE | 2024-04-24 08:19 | NUR ---
PATIENT IS RESTING WITH NO SIGNS OF DISTRESS. TAKING OFF RT SERVICE. PLEASE CALL WITH CONCERNS OR O2 USE.
--- NOTE | 2024-04-24 09:40 | NUR ---
PT REPOSISTIONED WITH PILLOWS TO LEFT SIDE, MINIMAL RESPONSE WITH MOVEMENT, ARM TENSE WITH PASSIVE RANGE OF MOTION BUT NO EYE OPENING. ORAL CARE COMPLETE. FAMILY NOT IN ROOM AT THIS TIME.
--- NOTE | 2024-04-24 12:45 | NUR ---
PT REPOSISTIONED TO RIGHT SIDE WITH PILLOWS, WAKES MINIMALLY AND SLIGHT EYE OPENING. PT SHAKES HEAD "NO" WHEN ASKED IF IN PAIN. SECREATIONS IN THROAT NEEDING SUCTIONED, PT PUSHES STAFF AWAY WHEN ATTEMPT MADE. PT NOTED TO START TRYING TO REMOVE GOWN AND SWATTING AT STAFF ATTEMPTING TO ASSIST.
--- NOTE | 2024-04-24 13:54 | NUR ---
Daughter is at bed side, no request at this time.
--- NOTE | 2024-04-24 14:00 | NUR ---
FAMILY UPDATED ON PT STATUS, ALL QUESTIONS ANSWERED.
--- NOTE | 2024-04-24 15:25 | NUR ---
PT REPOSISTIONED IN BED ON BACK WITH HIPS FLOATED. ORAL CARE COMPLETE. PT DENIES PAIN WHEN ASKED. TOLERATES REPOSISTIONING WITH LITTLE DISTRESS. FAMILY AT BEDSIDE AND DENIES NEEDS.
--- NOTE | 2024-04-24 15:51 | NUR ---
rotated patient and did some comfort care. Family at the bedside
--- NOTE | 2024-04-24 16:27 | NUR ---
PT REPOSISTION IN BED PER FAMILY REQUEST. PT CONTINUES TO SAY NO WHEN ASKED IF IN PAIN. PT INTERMITANTLY MUMBLING AND SLEEPING, CONSOLUABLE BY DAUGHTER. FAMILY AT BEDSIDE DENY NEEDS.
--- NOTE | 2024-04-24 18:00 | NUR ---
PT REPOSISTIONED TO RIGHT SIDE WITH PILLOWS, PT CALM AND LESS AGITATED, DENIES PAIN. OCCASIONAL COUGH STRONG ENOUGHT TO CLEAR SECREATIONS BUT REFUSES SUCTION.
--- NOTE | 2024-04-24 18:29 | NUR ---
PT MORE RESTLESS IN BED AND ATTEMPTING TO GET UP NOW THAT FAMILY HAVE LEFT. ATIVAN ADMINISTERED.
--- NOTE | 2024-04-24 19:05 | NUR ---
RECIEVED REPORT FROM GEMINIGARANCHO RN. PATIENT RESTING IN BED ON BACK WITH EYES CLOSED. PATIENT APPEARS RESTLESS IN THE BED, FIDGETING AND PUTTING HIS FOOT THROUGH THE BEDRAIL. PATIENT REPOSITIONED SO HIS FOOT WAS NOT IN THE BED RAILS. PATIENT DID NOT OPEN HIS EYES TO VOICE OR POSITION. RESPIRATIONS 16, WITH A 10 SECOND PERIOD OF APNEA. NO OTHER NEEDS IDENTIFIED AT THIS TIME. CALL LIGHT IN REACH. BED ALARM ACTIVE.
--- NOTE | 2024-04-24 21:15 | NUR ---
IN ROOM TO ROUND ON PATIENT. PATIENT RESTING ON RIGHT SIDE WITH EYES CLOSED, RESPIRATIONS 18, PATIENT APPEARS MILDLY RESTLESS. MOVING HANDS AND FEET, FIDGETING WITH STAT LOCK. PATIENT NOT IN ACUTE DISTRESS. NO NEEDS IDENTIFIED AT THIS TIME. CALL LIGHT IN REACH. BED ALARM ACTIVE. FALL MATS IN PLACE.
--- NOTE | 2024-04-24 22:46 | NUR ---
IN ROOM TO ASSESS PATIENT. ASSESSMENT COMPLETE. PATIENT APPEARS RESTLESS, STICKING FOOT THROUGH THE BED RAIL, FIGETING ARMS AND LEGS. PRN ATIVAN ADMINSITERED, SEE E-MAR. PATIENT REPOSTIONED FROM RIGHT SIDE TO LEFT SIDE. RAMIRES CARE TOLERATED WELL. PATIENT LESS TOLERABLE OF ORAL CARE, ATTEMPTED TO PUSH THIS RN'S HANDS AWAY, ORAL CARE COMPLETED. NO ACUTE DISTRESS IDENTIFIED. RESPIRATIONS 16. PATIENT MINIMALLY RESPONSIVE TO VOICE, INCOHERENT RESPONSES. CALL LIGHT IN REACH. BED ALARM ACTIVE. FALL MATS IN PLACE.
--- NOTE | 2024-04-25 01:13 | NUR ---
IN ROOM TO ROUND ON PATIENT. PATIENT REPOSITIONED FROM LEFT SIDE TO RIGHT SIDE. PATIENT TOLERATED REASONABLY WELL. PATIENT RESTING IN BED. RESPIRATIONS 16, NO ACUTE DISTRESS NOTED. NO NEEDS IDENTIFIED AT THIS TIME. CALL LIGHT IN REACH. BED ALARM ACTIVE. FALL MATS IN PLACE.
--- NOTE | 2024-04-25 01:14 | NUR ---
IN ROOM TO ROUND ON PATIENT. PATIENT REPOSITONED FROM RIGHT SIDE TO LEFT SIDE. PATIENT
--- NOTE | 2024-04-25 03:13 | NUR ---
IN ROOM TO TURN PATIENT. PATIENT TOLERATED WELL. PATIENT REMAINED RESTING IN BED ON BACK WITH EYES CLOSED. DOESN'T RESPOND TO VOICE. PATIENT PROVIDED NO RESISTANCE AND SHOWED NO AGITATION WITH TURNING OR ORAL CARE. NO ADDITIONAL NEEDS IDENTIFIED AT THIS TIME. CALL LIGHT IN REACH. FALL MATS IN PLACE.
--- NOTE | 2024-04-25 04:18 | NUR ---
ROUNDED ON pt, pt RESTING SOMEWHAT ON BACK, EYES CLOSED. ON RA, RR EVEN AND UNLABORED WITH INTERMITTENT AUDIBLE SNORING AND BRIEF MOMENTS OF APNEA. NO DISTRESS OR SIGNS OF PAIN OR DISCOMFORT NOTED. BED ALARM ON FOR SAFETY AND CALL LIGHT IN REACH. RAMIRES REMAINS PATENT AND TO GRAVITY DRAIN. IV SITES X2 CONTINUE TO BE SALINE LOCKED.
--- NOTE | 2024-04-25 04:40 | NUR ---
this rn in room with float rn ed to suction pt. pt tolerated poorly, speech very gargled and stated, "god dammit". very scant output from suction, pt left to rest in bed, hob elevated and bed alarm on for safety. call light remains in reach.
--- NOTE | 2024-04-25 06:27 | NUR ---
IN ROOM TO ROUND ON PATIENT. PATIENT RESTING IN BED ON BACK WITH EYES CLOSED. RAIMRES EMPTIED. RESPIRATIONS 16, NO ACUTE DISTRESS IDENTIFIED. NO ADDITIONAL NEEDS IDENTIFIED. CALL LIGHT IN REACH.
--- NOTE | 2024-04-25 06:58 | NUR ---
IN ROOM TO ADMINISTER PRN MORPHINE FOR AIR HUNGER. PATIENT RESPIRATIONS 20, BRIEF PERIODS OF APNEA FOLLOWED BY COUGHING AND TACHNEPIC BREATHING. OXYGEN SATURATION 90% ON ROOM AIR. HR 80's. PATIENT RECENTLY REPOSITIONED BY [employer]. ORAL CARE PERFORMED INCLUDING GLYCERINE SWABS AND LIP BALM. PATIENT TOLERATED WELL. NO ADDITIONAL NEEDS IDENTIFIED AT THIS TIME. CALL LIGHT IN REACH. BED ALARM ACTIVE.
--- NOTE | 2024-04-25 07:13 | NUR ---
UR CLINICAL REVIEW: 2 MN FOR [facility] INPT FOR HYPOGLYCEMIA/NSTEMI MEDICARE INPT 04/20/24 @ 1350 ORDER MATCHES REG NO AUTH REQUIRED PER MEDICARE GUIDELINES DISCHARGE PENDING FURTHER DISCUSSION WITH FAMILY
--- NOTE | 2024-04-25 07:15 | NUR ---
daughter loretta called and asked for pt update, questions answered and update provided.
--- NOTE | 2024-04-25 07:54 | NUR ---
REPORT RECEIVED FROM UNIQUE ANN. PT SNORING WITH REGULAR RHYTHM
--- NOTE | 2024-04-25 08:20 | NUR ---
ORAL CARE, TURNED, CHAPSTICK. PT STILL RESPONDS WITH SOUNDS TO QUESTIONS. SUCKED ON WATER SWAB. ELEVATED ON PILLOWS.
--- NOTE | 2024-04-25 09:20 | NUR ---
SPOKE WITH FAMILY REGARDING CARE AND PLACEMENT. SON LOOKING FORWARD TO SPEAKING WITH MICHEAL
--- NOTE | 2024-04-25 09:48 | NUR ---
Spoke with pts son, Mundo and daughter,Denisha.Asked if they would like their mom to be here. They both feel mom is not able to care for pt on her own due to her health. They will pass on info. Discussed OPtions of a SNF, pt can no longer go as a therapy pt and his secondary would not covery the cost of the room as it is an [employer]vant[employer] plan. Their cost would be $16,500. Assisted Living would be around $6000 out of [facility], pt could remain here, but if Medicare does not cover his Comfort care, cost would be upwards of $3000 per night. Family have been speaking with [facility] and would like pt to go there is there is a bed. I called and spoke with Sis at [facility]. She is aware of this family and spoke with staff and management. They will see pt this afternoon if they can accept.
--- NOTE | 2024-04-25 10:24 | NUR ---
IN WITH RN TO REPOSITION PATIENT. PATIENT REPOSITIONED ONTO RIGHT SIDE WITH PILLOWS UNDER LEFT SIDE. FAMILY IN ROOM.
--- NOTE | 2024-04-25 11:06 | NUR ---
PT DTR IN ROOM. PT APPEARS COMFORTABLE. BREATHING MORE HEAVILY.
[2024-04-25] MEDS ORDERED: ACETAMINOPHEN 1,000 MG/100 ML VIAL IV PRN (11:45)
--- NOTE | 2024-04-25 11:47 | NUR ---
PT NOT AVAILABLE FOR VISIT. PROVIDED PRAYER.
--- NOTE | 2024-04-25 11:48 | NUR ---
PT GETTING FLUSHED IN FACE. TEMP 99.9. REMOVED BLANKETS AND ADMINISTERED OFIRMEV.
--- NOTE | 2024-04-25 12:03 | NUR ---
PLACED COOL WASHCLOTH ON PTS FOREHEAD. OFIRMEV COMPLETE. SON AND DTR IN ROOM.
--- NOTE | 2024-04-25 13:04 | NUR ---
PT STOPPED BREATHING, DR AND [facility] CALLED. FAMILY IN ROOM.
--- NOTE | 2024-04-25 13:06 | NUR ---
NOTIFIED BY NURSING STAFF THAT PT HAD PASSED. FAMILY MEMBERS IN ROOM EXPRESSING SITUATIONALLY APPROPRIATE RESPONSES. INDICATED NO DESIRE FOR PRAYER IN ROOM, STATED PT HAD NOT PARTICIPATED IN ANY ROMAN CATHOLIC OBSERVANCES FOR SOME TIME. PORTABLE SAWYER PROVIDED SUPPORTIVE PRESENCE, SILENT PRAYER, FACILITATED BRIEF ENCOUNTER WITH THERAPY ANIMAL. SHORT VISIT FAMILY INDICATED DESIRE FOR PRIVACY. WILL RETURN CIRCUMSTANCES WARRANT.
--- NOTE | 2024-04-25 13:27 | NUR ---
FAMILY INDICATED [facility] OF CHOICE.
--- NOTE | 2024-04-25 13:40 | NUR ---
Notified by staff, pt . I contacted Hospice and Sis from [facility] to cancel the visits.
--- NOTE | 2024-04-25 14:29 | NUR ---
FAMILY GAVE PERMISSION CALL MORTUARY. [facility] CONTACTED 1337, ARRIVED 1353. PT DEPARTED FACILITY 1415. ALL PT BELONGINGS HAD GONE WITH FAMILY.
--- NOTE | 2024-04-25 14:42 | NUR ---
SAID GOODBYE TO THE FAMILY, REMOVED PT IV. ASSISTED HOME TO MOVE PT. LEFT AT 1417
[2024-04-26] MEDS ORDERED: SCOPOLAMINE 1 MG/3 DAYS PATCH 1 EACH TDSY TD SCH (09:00)
== END 2024-04-25 14:42 ==
LOC: ED 08:18 → CCU 13:50 → MS 04-23 19:30
PROVIDERS: Emergency Medicine; Student in an Organized Health Care Education/Training Program; ADMIT Family Medicine; ATTEND Family Medicine
PROC: 0T9B70Z Drainage of Bladder with Drainage Device, Via Natural or Artificial Opening (ICD-10-PCS; principal; 2024-04-20)
PROC: 3E03329 Introduction of Other Anti-infective into Peripheral Vein, Percutaneous Approach (ICD-10-PCS; 2024-04-23)
DX: I21.4 Non-ST elevation (NSTEMI) myocardial infarction (principal); A41.9 Sepsis, unspecified organism; J96.01 Acute respiratory failure with hypoxia; G93.41 Metabolic encephalopathy; N18.4 Chronic kidney disease, stage 4 (severe); M62.82 Rhabdomyolysis; N17.9 Acute kidney failure, unspecified; F02.811 Dementia in other diseases classified elsewhere, unspecified severity, with agitation; Z66 Do not resuscitate; G20.A1 Parkinson's disease without dyskinesia, without mention of fluctuations; E11.649 Type 2 diabetes mellitus with hypoglycemia without coma; Z51.5 Encounter for palliative care; E11.22 Type 2 diabetes mellitus with diabetic chronic kidney disease; I25.10 Atherosclerotic heart disease of native coronary artery without angina pectoris; I44.0 Atrioventricular block, first degree; M25.551 Pain in right hip; M25.552 Pain in left hip; G89.29 Other chronic pain; C61 Malignant neoplasm of prostate; M10.9 Gout, unspecified; N40.0 Benign prostatic hyperplasia without lower urinary tract symptoms; D63.1 Anemia in chronic kidney disease; E78.5 Hyperlipidemia, unspecified; E83.42 Hypomagnesemia; Z98.890 Other specified postprocedural states; Z79.84 Long term (current) use of oral hypoglycemic drugs; Z88.8 Allergy status to other drugs, medicaments and biological substances; Z79.899 Other long term (current) drug therapy; Z79.2 Long term (current) use of antibiotics; Z87.891 Personal history of nicotine dependence; Z90.49 Acquired absence of other specified parts of digestive tract; Z82.49 Family history of ischemic heart disease and other diseases of the circulatory system; Z92.3 Personal history of irradiation; Z98.42 Cataract extraction status, left eye; Z98.41 Cataract extraction status, right eye; Z95.5 Presence of coronary angioplasty implant and graft; Z90.89 Acquired absence of other organs
CPT/HCPCS: 36415; 36592; 51702; 71045; 71250; 72170; 74176; 80048; 80053; 81001; 82140; 82553; 83735; 83880; 84100; 84439; 84443; 84484; 85025; 85610; 85730; 86850; 86900; 86901; 87040; 92610; 93005; 93010; 93306; 94640; 94667; 94668; 97162; 97168; 97530; 99285-25; A9270; J0131; J0696; J0878; J1644; J1940; J2060; J2270; J2354-JA; J2405; J3475; J7042; J7121